=== PATIENT | female | born 1970 | race Caucasian/White ===

== ENCOUNTER 2021-06-21 13:48 | Emergency (ER) | payer OTHER, SELFPAY ==
[~2021-06-21] VITALS: Ht 162.6 cm; Wt 72.6 kg
[2021-06-21 13:48] VITALS: BP_SYST 124
[2021-06-21 15:19] LABS: BASOPHILS # (AUTO) 0.1 K/uL (0.0-0.2); BASOPHILS % (AUTO) 1.4 % (0.0-2.0); EOSINOPHILS # (AUTO) 0.5 K/uL (0.0-0.4); EOSINOPHILS % (AUTO) 6.8 % (0.0-4.0); HEMATOCRIT 37.2 % (36-48); HEMOGLOBIN 12.5 g/dL (12.0-16.0); LYMPHOCYTES # (AUTO) 1.7 K/uL (1.0-5.5); LYMPHOCYTES % (AUTO) 23.9 % (20.5-51.5); MEAN CORPUSCULAR HEMOGLOBIN 31 pg (27-31); MEAN CORPUSCULAR HGB CONC 34 % (32-36); MEAN CORPUSCULAR VOLUME 91 fL (79.0-98.0); MONOCYTES # (AUTO) 0.4 K/uL (0.0-1.0); MONOCYTES % (AUTO) 5.8 % (1.7-9.3); NEUTROPHILS # (AUTO) 4.4 K/uL (1.8-7.7); NEUTROPHILS % (AUTO) 62.1 % (40.0-70.0); PLATELET COUNT (AUTO) 318 K/uL (130-430); RED BLOOD CELL COUNT(AUTO) 4.09 MIL/uL (4.2-6.2); RED CELL DISTRIBUTION WIDTH 13.3 % (9.0-15.0); WHITE BLOOD COUNT (AUTO) 7.1 K/uL (4.8-10.8)
[2021-06-21 15:31] LABS: ANION GAP 5 (5-15); CHLORIDE 106 mmol/L (98-107); GLUCOSE 97 mg/dL (70-99); POTASSIUM 3.7 mmol/L (3.5-5.1); SODIUM SERUM 143 mmol/L (136-145); UREA NITROGEN, BLOOD 17 mg/dL (8-21)
[2021-06-21 15:45] LABS: GFR AFRICAN AMERICAN 113 mL/min (>90)
[2021-06-21] MEDS ORDERED: PRED20TA PO (16:39)
[2021-06-21] MEDS ORDERED: ALBMDI INH (16:39)
[2021-06-21 16:55] VITALS: BP_SYST 124
== END 2021-06-21 16:56 | disposition home or self-care (01) ==
LOC: SED 13:48
DX: R06.02 Shortness of breath (principal); R07.81 Pleurodynia; Z79.899 Other long term (current) drug therapy
CPT/HCPCS: 36415; 71045; 80048; 84484; 85025; 85379; 93005; 99285

== ENCOUNTER 2021-07-28 11:23 | Emergency (ER) | payer OTHER, SELFPAY ==
[~2021-07-28] VITALS: Ht 162.6 cm; Wt 68.0 kg
[~2021-07-28 11:23] MED LIST: ALBMDI INH; PRED20TA PO
[2021-07-28 11:52] VITALS: BP_SYST 114
[2021-07-28 12:28] LABS: BASOPHILS % (AUTO) 0.6 % (0.0-2.0); EOSINOPHILS # (AUTO) 0.1 K/uL (0.0-0.4); EOSINOPHILS % (AUTO) 1.3 % (0.0-4.0); HEMATOCRIT 37.5 % (36-48); HEMOGLOBIN 12.6 g/dL (12.0-16.0); LYMPHOCYTES # (AUTO) 1.4 K/uL (1.0-5.5); LYMPHOCYTES % (AUTO) 17.2 % (20.5-51.5); MEAN CORPUSCULAR HEMOGLOBIN 30 pg (27-31); MEAN CORPUSCULAR HGB CONC 34 % (32-36); MEAN CORPUSCULAR VOLUME 90 fL (79.0-98.0); MONOCYTES # (AUTO) 0.4 K/uL (0.0-1.0); MONOCYTES % (AUTO) 5.2 % (1.7-9.3); NEUTROPHILS % (AUTO) 75.7 % (40.0-70.0); PLATELET COUNT (AUTO) 282 K/uL (130-430); RED BLOOD CELL COUNT(AUTO) 4.18 MIL/uL (4.2-6.2); RED CELL DISTRIBUTION WIDTH 12.9 % (9.0-15.0); WHITE BLOOD COUNT (AUTO) 7.9 K/uL (4.8-10.8)
[2021-07-28 12:45] LABS: PROTHROMBIN TIME 10.7 SECS (9.5-12.5)
[2021-07-28 12:57] LABS: CHLORIDE 104 mmol/L (98-107); POTASSIUM 3.9 mmol/L (3.5-5.1); SODIUM SERUM 139 mmol/L (136-145)
[2021-07-28 12:58] LABS: ALANINE AMINOTRANSFERASE 24 U/L (12-78); ALBUMIN 3.7 g/dL (3.4-4.8); ANION GAP 10 (5-15); ASPARTATE AMINOTRANSFERASE 13 U/L (10-37); CALCIUM 9.4 mg/dL (8.4-11.0); CREATININE 0.63 mg/dL (0.55-1.30); GFR AFRICAN AMERICAN 128 mL/min (>90); GLUCOSE 111 mg/dL (70-99); TOTAL BILIRUBIN 0.4 mg/dL (0.0-1.0); UREA NITROGEN, BLOOD 10 mg/dL (8-21)
[2021-07-28 13:20] LABS: ACETONE, SERUM NEGATIVE (NEGATIVE)
[2021-07-28 13:44] LABS: BILIRUBIN,URINE NEGATIVE (NEGATIVE); BLOOD, URINE NEGATIVE (NEGATIVE); CLARITY/URINE CLEAR (CLEAR); COLOR,URINE YELLOW (YELLOW); GLUCOSE,URINE NEGATIVE (NEGATIVE); KETONES,URINE 1+ (NEGATIVE); LEUKOCYTE ESTERASE ,URINE TRACE (NEGATIVE); NITRITE, URINE NEGATIVE (NEGATIVE); PROTEIN URINE NEGATIVE (NEGATIVE); UROBILINOGEN,URINE 0.2 (0.2-1.0)
[2021-07-28 14:02] LABS: BACTERIA,URINE FEW /HPF (None Seen); RBC,URINE NONE SEEN /HPF (0-3); WBC,URINE 0-3 /HPF (0-3)
[2021-07-28 14:14] VITALS: BP_SYST 114
== END 2021-07-28 14:15 | disposition home or self-care (01) ==
LOC: SED 11:23
DX: R20.2 Paresthesia of skin (principal); Z79.899 Other long term (current) drug therapy
CPT/HCPCS: 36415; 70450-TC; 71045; 76376; 80053; 81000; 81025; 82009; 82550; 83605; 84484; 85025; 85610-TC; 85730-TC; 93005; 99285

== ENCOUNTER 2021-10-18 08:25 | Emergency (ER) | payer OTHER, SELFPAY ==
[~2021-10-18] VITALS: Ht 162.6 cm; Wt 70.3 kg
[2021-10-18 08:25] VITALS: BP_SYST 97
--- NOTE | 2021-10-18 08:25 | NUR ---
BROUGHT BACK TO OUTSIDE TRIAGE TENT, TRIAGED. AWAITING ER BED AVAILABILITY
--- NOTE | 2021-10-18 08:30 | NUR ---
PT STATES SHE IS UNVACCINATED AND TESTED + FOR COVID ABOUT 9 DAYS AGO, STILL FEELING SICK WITH NAUSEA/VOMITING/DIARRHEA AND FEVERS. STATES LAST TEMPERATURE WAS THIS AM AT 0700 AND WAS 102, TOOK TYLENOL. STATES SHE HAS BEEN TAKING A LOT OF TYLENOL DUE TO FEVERS AND THINKS IT MIGHT BE BOTHERING HER STOMACH
--- NOTE | 2021-10-18 08:48 | NUR ---
DR RIVERA OUT TO TENT TO EVALUATE PT.
[2021-10-18] MEDS ORDERED: NACL 0.9% 1,000 ML IV ONE (09:00)
[2021-10-18] MEDS ORDERED: ONDANSETRON HCL 4 MG/2 ML VIAL IVP ONE (09:00)
--- NOTE | 2021-10-18 09:00 | NUR ---
BROUGHT IN BY WHEELCHAIR AND PLACED IN BED #6, REPORT GIVEN TO
[2021-10-18 09:11] LABS: BASOPHILS % (AUTO) 0.7 % (0.0-2.0); HEMATOCRIT 39.1 % (36-48); HEMOGLOBIN 13.1 g/dL (12.0-16.0); LYMPHOCYTES # (AUTO) 0.8 K/uL (1.0-5.5); LYMPHOCYTES % (AUTO) 16.8 % (20.5-51.5); MEAN CORPUSCULAR HEMOGLOBIN 29 pg (27-31); MEAN CORPUSCULAR HGB CONC 34 % (32-36); MEAN CORPUSCULAR VOLUME 87 fL (79.0-98.0); MONOCYTES # (AUTO) 0.2 K/uL (0.0-1.0); MONOCYTES % (AUTO) 4.7 % (1.7-9.3); NEUTROPHILS # (AUTO) 3.9 K/uL (1.8-7.7); NEUTROPHILS % (AUTO) 77.8 % (40.0-70.0); PLATELET COUNT (AUTO) 231 K/uL (130-430); RED BLOOD CELL COUNT(AUTO) 4.49 MIL/uL (4.2-6.2); RED CELL DISTRIBUTION WIDTH 12.9 % (9.0-15.0)
[2021-10-18 09:23] LABS: CREATININE 0.71 mg/dL (0.55-1.30); POTASSIUM 3.8 mmol/L (3.5-5.1)
[2021-10-18 09:29] LABS: ALBUMIN 3.8 g/dL (3.4-4.8); TOTAL BILIRUBIN 0.4 mg/dL (0.0-1.0)
[2021-10-18] MEDS ORDERED: ONDA-8 TL (10:27)
[2021-10-18 10:40] VITALS: BP_SYST 133
--- NOTE | 2021-10-18 10:42 | NUR ---
Patient given written and verbal discharge instructions and verbalizes understanding. DEYSI Avina discussed with patient the results and treatment provided. Patient in stable condition. ID arm band removed. IV catheter removed intact and dressing applied, no active bleeding. Rx of zofran odt given. Patient educated on pain management and to follow up with PMD. Pain Scale 0. Opportunity for questions provided and answered. Medication side effect fact sheet provided.
== END 2021-10-18 10:42 | disposition home or self-care (01) ==
LOC: SED 08:25
DX: U07.1 COVID-19 (principal); E86.0 Dehydration; Z79.899 Other long term (current) drug therapy
CPT/HCPCS: 36415; 80053; 85025; 96361; 96374; 99283; J2405; J7030

== ENCOUNTER 2021-10-24 18:04 | Emergency (ER) | payer OTHER, SELFPAY ==
[~2021-10-24] VITALS: Ht 157.5 cm; Wt 63.5 kg
[~2021-10-24 18:04] MED LIST changes: +ONDA-8 TL
[2021-10-24 18:15] VITALS: BP_SYST 132
[2021-10-24 20:37] LABS: BASOPHILS % (AUTO) 0.5 % (0.0-2.0); EOSINOPHILS # (AUTO) 0.2 K/uL (0.0-0.4); EOSINOPHILS % (AUTO) 3.5 % (0.0-4.0); HEMATOCRIT 31.7 % (36-48); HEMOGLOBIN 10.7 g/dL (12.0-16.0); LYMPHOCYTES # (AUTO) 2.3 K/uL (1.0-5.5); LYMPHOCYTES % (AUTO) 33.3 % (20.5-51.5); MEAN CORPUSCULAR HEMOGLOBIN 29 pg (27-31); MEAN CORPUSCULAR HGB CONC 34 % (32-36); MEAN CORPUSCULAR VOLUME 87 fL (79.0-98.0); MONOCYTES # (AUTO) 0.9 K/uL (0.0-1.0); MONOCYTES % (AUTO) 13.5 % (1.7-9.3); NEUTROPHILS # (AUTO) 3.4 K/uL (1.8-7.7); NEUTROPHILS % (AUTO) 49.2 % (40.0-70.0); PLATELET COUNT (AUTO) 587 K/uL (130-430); RED BLOOD CELL COUNT(AUTO) 3.64 MIL/uL (4.2-6.2); RED CELL DISTRIBUTION WIDTH 13.4 % (9.0-15.0)
[2021-10-24 21:30] LABS: CALCIUM 9.1 mg/dL (8.4-11.0); CREATININE 0.68 mg/dL (0.55-1.30); POTASSIUM 3.5 mmol/L (3.5-5.1)
[2021-10-24 21:43] LABS: ALBUMIN 3.1 g/dL (3.4-4.8); TOTAL BILIRUBIN 0.4 mg/dL (0.0-1.0)
[2021-10-24 22:18] LABS: C-REACTIVE PROTEIN QUANT 2.4 mg/dL (0-0.5)
[2021-10-24] MEDS ORDERED: IOHEXOL 350 mgI/mL, 150 ML INFUS..BTL IV ONE (22:26)
[2021-10-24] MEDS ORDERED: DOXY100C5 PO (22:47)
[2021-10-24] MEDS ORDERED: DEC1 PO (22:47)
[2021-10-24] MEDS ORDERED: VITD2000 PO (22:47)
[2021-10-24] MEDS ORDERED: ZINC50TA69 PO (22:47)
[2021-10-24 23:04] VITALS: BP_SYST 145
== END 2021-10-24 23:04 | disposition home or self-care (01) ==
LOC: SED 18:04
DX: J18.9 Pneumonia, unspecified organism (principal); J45.909 Unspecified asthma, uncomplicated; Z79.899 Other long term (current) drug therapy; Z20.822 Contact with and (suspected) exposure to COVID-19
CPT/HCPCS: 36415; 36600; 71045; 80053; 82803; 83605; 83615; 83880; 84484; 85025; 85379; 85384; 85610; 85730; 86140; 87040; 87426; 93005; 99285; Q9967

== ENCOUNTER 2023-03-15 07:10 | Emergency (ER) | payer OTHER ==
[~2023-03-15] VITALS: Ht 162.6 cm; Wt 74.8 kg
[~2023-03-15 07:10] MED LIST changes: +DEC1 PO; +DOXY100C5 PO; +VITD2000 PO; +ZINC50TA69 PO
[2023-03-15] MEDS ORDERED: KETOROLAC TROMETHAMINE 60 MG/2 ML VIAL IM ONE (07:45)
[2023-03-15] MEDS ORDERED: HYDROcodone/ACETAMIN 10-325 MG TAB PO ONE (07:45)
[2023-03-15 07:46] VITALS: BP_SYST 120
[2023-03-15 07:55] LABS: BASOPHILS % (AUTO) 0.5 % (0.0-2.0); EOSINOPHILS # (AUTO) 0.2 K/uL (0.0-0.4); HEMATOCRIT 36.8 % (36-48); HEMOGLOBIN 12.3 g/dL (12.0-16.0); LYMPHOCYTES # (AUTO) 1.3 K/uL (1.0-5.5); LYMPHOCYTES % (AUTO) 14.8 % (20.5-51.5); MEAN CORPUSCULAR HEMOGLOBIN 30 pg (27-31); MEAN CORPUSCULAR HGB CONC 33 % (32-36); MEAN CORPUSCULAR VOLUME 90 fL (79.0-98.0); MONOCYTES # (AUTO) 0.6 K/uL (0.0-1.0); MONOCYTES % (AUTO) 6.3 % (1.7-9.3); NEUTROPHILS # (AUTO) 6.8 K/uL (1.8-7.7); NEUTROPHILS % (AUTO) 76.4 % (40.0-70.0); PLATELET COUNT (AUTO) 280 K/uL (130-430); RED BLOOD CELL COUNT(AUTO) 4.07 MIL/uL (4.2-6.2); RED CELL DISTRIBUTION WIDTH 13.3 % (9.0-15.0)
[2023-03-15 08:05] LABS: CALCIUM 8.7 mg/dL (8.4-11.0); CREATININE 0.53 mg/dL (0.55-1.30)
[2023-03-15 08:10] LABS: ALBUMIN 3.6 g/dL (3.4-4.8); C-REACTIVE PROTEIN QUANT 1.7 mg/dL (0-0.5); TOTAL BILIRUBIN 0.4 mg/dL (0.0-1.0)
[2023-03-15 08:43] LABS: BILIRUBIN,URINE NEGATIVE (NEGATIVE); CLARITY/URINE CLEAR (CLEAR); COLOR,URINE YELLOW (YELLOW); GLUCOSE,URINE NEGATIVE (NEGATIVE); KETONES,URINE NEGATIVE (NEGATIVE); LEUKOCYTE ESTERASE ,URINE TRACE (NEGATIVE); NITRITE, URINE NEGATIVE (NEGATIVE); PH,URINE 6.5 (5.0-8.0); PROTEIN URINE NEGATIVE (NEGATIVE); UROBILINOGEN,URINE 0.2 (0.2-1.0)
[2023-03-15 08:55] LABS: BLOOD, URINE TRACE (NEGATIVE)
[2023-03-15 09:06] LABS: BACTERIA,URINE RARE /HPF (None Seen)
[2023-03-15 09:46] VITALS: BP_SYST 125
== END 2023-03-15 09:49 | disposition home or self-care (01) ==
LOC: SED 07:10
DX: S39.013A Strain of muscle, fascia and tendon of pelvis, initial encounter (principal); J45.909 Unspecified asthma, uncomplicated; Z79.899 Other long term (current) drug therapy; X58.XXXA Exposure to other specified factors, initial encounter; Y93.43 Activity, gymnastics; Y92.89 Other specified places as the place of occurrence of the external cause; Y99.8 Other external cause status
CPT/HCPCS: 99285; 74176; 80053; 81000; 85025; 86140; 36415; 76376; 96372; 83605; J1885

== ENCOUNTER 2023-03-18 15:04 | Emergency (ER) | payer OTHER ==
[~2023-03-18] VITALS: Ht 162.6 cm; Wt 74.8 kg
[2023-03-18 15:06] VITALS: BP_SYST 124
[2023-03-18 16:13] LABS: BASOPHILS % (AUTO) 0.6 % (0.0-2.0); EOSINOPHILS # (AUTO) 0.2 K/uL (0.0-0.4); EOSINOPHILS % (AUTO) 2.3 % (0.0-4.0); HEMATOCRIT 38.1 % (36-48); HEMOGLOBIN 12.5 g/dL (12.0-16.0); LYMPHOCYTES # (AUTO) 1.4 K/uL (1.0-5.5); LYMPHOCYTES % (AUTO) 17.9 % (20.5-51.5); MEAN CORPUSCULAR HEMOGLOBIN 30 pg (27-31); MEAN CORPUSCULAR HGB CONC 33 % (32-36); MEAN CORPUSCULAR VOLUME 91 fL (79.0-98.0); MONOCYTES # (AUTO) 0.4 K/uL (0.0-1.0); MONOCYTES % (AUTO) 5.5 % (1.7-9.3); NEUTROPHILS # (AUTO) 5.8 K/uL (1.8-7.7); NEUTROPHILS % (AUTO) 73.7 % (40.0-70.0); PLATELET COUNT (AUTO) 339 K/uL (130-430); RED CELL DISTRIBUTION WIDTH 12.9 % (9.0-15.0); WHITE BLOOD COUNT (AUTO) 7.8 K/uL (4.8-10.8)
[2023-03-18 16:25] LABS: PROTHROMBIN TIME 9.9 SECS (9.5-12.5)
[2023-03-18 16:28] LABS: ALBUMIN 3.7 g/dL (3.4-4.8); CREATININE 0.57 mg/dL (0.55-1.30); TOTAL BILIRUBIN 0.3 mg/dL (0.0-1.0)
--- NOTE | 2023-03-18 16:45 | NUR ---
Patient to ER bed 02 to gown for evaluation. Side rails up.
--- NOTE | 2023-03-18 16:50 | NUR ---
Pt BIB self. C/O blood in stool. pt states some abdominal cramping with constipation. pt states she noted blood in stool this morning. Pt states some straining before BM. VSS. pt noted with right leg immobilizer. Pt in bed with side rails up.
--- NOTE | 2023-03-18 16:56 | NUR ---
Rectal exam completed by MD Russell with [facility]. Pt tolerated well.
[2023-03-18] MEDS ORDERED: DOCU-144 PO (16:58)
--- NOTE | 2023-03-18 17:29 | NUR ---
Patient given written and verbal discharge instructions and verbalizes understanding. ER MD discussed with patient the results and treatment provided. Patient in stable condition. ID arm band removed. Rx of DOCUSATE SODIUM given. Patient educated on pain management and to follow up with PMD. Opportunity for questions provided and answered. Medication side effect fact sheet provided.
[2023-03-18 17:31] VITALS: BP_SYST 124
== END 2023-03-18 17:29 | disposition home or self-care (01) ==
LOC: SED 15:04
DX: S39.91XA Unspecified injury of abdomen, initial encounter (principal); J45.909 Unspecified asthma, uncomplicated; Z79.899 Other long term (current) drug therapy; X58.XXXA Exposure to other specified factors, initial encounter; Y93.89 Activity, other specified; Y92.89 Other specified places as the place of occurrence of the external cause; Y99.8 Other external cause status
CPT/HCPCS: 36415; 80053; 85025; 85610-TC; 85730-TC; 99283

== ENCOUNTER → 2023-12-28 | Emergency (ER) | payer OTHER ==
[~2023-12-28] VITALS: Ht 162.6 cm; Wt 72.6 kg
[~2023-12-28] MED LIST changes: +DICL20GE TP; +DOCU-144 PO; +IBUP-1969 PO
[2023-12-28 14:05] VITALS: BP_SYST 129; PULSE 74; RESP 19; TEMP 98.2; O2SAT 99
[2023-12-28] MEDS: KETOROLAC TROMETHAMINE 30 MG VIAL IM ONE (14:35)
[2023-12-28 15:38] VITALS: BP_SYST 129; PULSE 74; RESP 19; TEMP 98.2; O2SAT 99
== END | disposition home or self-care (01) ==
LOC: SED 14:00
DX: G44.209 Tension-type headache, unspecified, not intractable (principal); M50.30 Other cervical disc degeneration, unspecified cervical region; J45.909 Unspecified asthma, uncomplicated; Z79.899 Other long term (current) drug therapy
CPT/HCPCS: 99285; 70450; 72125; 76376; 96372; J1885

== ENCOUNTER 2024-08-12 17:17 | Emergency (ER) | payer OTHER ==
[~2024-08-12] VITALS: Ht 162.6 cm; Wt 74.8 kg
[2024-08-12 18:09] VITALS: BP_SYST 131; PULSE 76; RESP 16; TEMP 97.8; O2SAT 96
== END 2024-08-12 19:20 | disposition left against medical advice (07) ==
LOC: SED 17:17
DX: M79.621 Pain in right upper arm (principal); Z53.21 Procedure and treatment not carried out due to patient leaving prior to being seen by health care provider